=== PATIENT | female | born 1960 | race Native Hawaiian/Other Pacific Islander ===

== ENCOUNTER 2020-10-25 12:02 | Outpatient (CLI) | payer BC, OTHER | END 2020-10-25 23:59 | disposition home or self-care (01) | LOC: INF 12:02 | PROVIDERS: ATTEND Internal Medicine | DX: Z23 Encounter for immunization (principal) | CPT/HCPCS: 96372 ==

== ENCOUNTER 2020-11-22 11:48 | Outpatient (CLI) | payer BC, OTHER | END 2020-11-22 21:58 | disposition home or self-care (01) | LOC: INF 11:48 | PROVIDERS: ATTEND Internal Medicine | DX: Z23 Encounter for immunization (principal) | CPT/HCPCS: 96372 ==